=== PATIENT | female | born 1980 | race Caucasian/White ===

== ENCOUNTER 2025-03-14 00:33 | Observation (INO) | payer OTHER, SELFPAY ==
[2025-03-14] MEDS ORDERED: Mag-Al 1200 mg/1200 mg/30 ML UDCUP ONE (01:03)
[2025-03-14] MEDS ORDERED: Ondansetron PF 4 MG/2 ML Vial ONE ×2 (01:04→02:16)
[2025-03-14] MEDS ORDERED: Lidocaine Viscous Sol 2% 15 ml UD Cup ONE (01:07)
[2025-03-14 01:20] LABS: #Basophils 0.03 10x3/uL (0.0-0.2); #Eosinophils 0.17 10x3/uL (0.0-0.7); #Monocytes 0.42 10x3/uL (0.11-0.59); #Neutrophils 4.15 10x3/uL (1.40-6.50); %Basophils 0.4 % (0.0-1.0); %Eosinophils 2.0 % (0.0-10.0); %Lymphocytes 42.6 % (21.0-51.0); %Monocytes 5.0 % (0.0-10.0); %Neutrophils 49.8 % (42.0-75.0); Hematocrit 38.7 % (36.0-47.0); Hemoglobin 13.3 g/dL (12.0-16.0); Mean Corpuscular Hemoglobin 29.0 pg (27.0-31.0); Mean Corpuscular Volume 84.5 fL (78.0-98.0); Platelet Count 256 10x3/uL (130-400); Red Blood Cell (RBC) Count 4.58 mill/uL (4.20-5.40); White Blood Cell (WBC) Count 8.34 10x3/uL (4.8-10.8)
[2025-03-14 01:28] LABS: BHCG - Serum Negative (NEGATIVE); Pregs Control Background? CLEAR/WHITE (CLR/WHITE); Pregs Control Bar Appear? YES (CONTROL BAR)
[2025-03-14 01:40] LABS: Troponin I Less than 0.010 ng/mL (< 0.028)
[2025-03-14 01:51] LABS: ALT (SGPT) 34 U/L (Less than 34); AST (SGOT) 37 U/L (11-34); Albumin 4.6 g/dL (3.1-4.5); Alkaline Phosphatase 78 U/L (40-110); Anion Gap 16 mmol/L (10-20); BUN (Urea Nitrogen) 11 mg/dL (7.0-18.7); Bilirubin, Total 0.3 mg/dL (0.3-1.2); Calc. Creatinine Clearance 0 mL/min (70-130); Calcium 9.4 mg/dL (7.8-10.44); Carbon Dioxide 20 mmol/L (22-29); Chloride 109 mmol/L (98-107); Globulin 3.1 g/dL (2.4-3.5); Glucose 98 mg/dL (70-105); Lipase 36 U/L (8-78); Potassium 3.8 mmol/L (3.5-5.1); Sodium 141 mmol/L (136-145)
[2025-03-14 04:26] LABS: Troponin I Less than 0.010 ng/mL (< 0.028)
[2025-03-14] MEDS ORDERED: Acetaminophen 325 MG TAB PO PRN (04:54)
[2025-03-14] MEDS ORDERED: Calcium Carbonate 500 MG ChewTAB PO PRN (04:54)
[2025-03-14] MEDS ORDERED: Ondansetron PF 4 MG/2 ML Vial IVP PRN (04:54)
[2025-03-14] MEDS ORDERED: Electrolyte Replacement Protocol 1 EACH FS SCH (05:00)
[2025-03-14 07:49] VITALS: BMI 42.1
[2025-03-14 16:34] VITALS: BP 128/81; TEMP 97.7
== END 2025-03-14 17:44 | disposition home or self-care (01) ==
LOC: ERS 00:33 → T4-B 05:57
PROVIDERS: ADMIT Student in an Organized Health Care Education/Training Program; ATTEND Hospitalist
DX: K80.20 Calculus of gallbladder without cholecystitis without obstruction (principal); K76.0 Fatty (change of) liver, not elsewhere classified; E66.9 Obesity, unspecified; Z68.41 Body mass index [BMI] 40.0-44.9, adult; Z90.89 Acquired absence of other organs
CPT/HCPCS: 36415; 71045; 74181; 76376; 76705; 80053; 83605; 83690; 83880; 84484; 84703; 85025; 85379; 93005; 96365; 96375; 96376; G0378; J2270; J2405; J2543